=== PATIENT | male | born 1970 | race Caucasian/White ===

== ENCOUNTER 2018-09-29 15:56 | Emergency (ER) | payer BC ==
[2018-09-29 16:05] VITALS: PULSE 62; RESP 18; O2SAT 98
[2018-09-29] MEDS ORDERED: Sodium Chloride 0.9% 1,000 ML IV ONE (16:21)
[2018-09-29] MEDS ORDERED: Belladonna-Phenobarbital PO STA (16:21)
[2018-09-29 16:34] LABS: BASO % 0.5 % (0.0-2.0); EOS % 0.2 % (0.0-4.0); HEMOGLOBIN 15.8 g/dL (12.0-18.0); LYMPH # 0.9 K/uL (1.0-4.3); LYMPH % 8.7 % (20.0-40.0); MEAN CELL VOLUME 90.3 fL (80.0-94.0); MEAN CORPUSCULAR HEMOGLOBIN 30.6 pg (27.0-31.0); MEAN CORPUSCULAR HGB CONC 33.9 g/dL (33.0-37.0); MONO # 0.5 K/uL (0.0-0.8); MONO % 4.7 % (0.0-10.0); NEUT # 8.9 K/uL (1.8-7.0); NEUT % 85.9 % (50.0-75.0); PLATELET COUNT 180 K/uL (130-400); RBC 5.18 Mil/uL (4.40-5.90); RED CELL DISTRIBUTION WIDTH 13.9 % (11.5-14.5); WHITE BLOOD COUNT 10.4 K/uL (4.8-10.8)
[2018-09-29] MEDS ORDERED: Belladonna-Phenobarbital ONE (16:35)
[2018-09-29] MEDS ORDERED: Sodium Chloride 0.9% 1,000 ML ONE (16:36)
--- NOTE | 2018-09-29 16:36 | C.PDOC ---
History Of Present Illness 48 year old male with no medical history presents to the ED for evaluation of dizziness and 6 episodes of vomiting for 2 day. The patient reports yellow vomit with normal bowel movements and stool. His abdomen began to hurt after multiple episodes of vomiting. He notes having no symptoms 1 day ago. The patient denies fever, chills, chest pain, and any other associated symptoms. Time Seen by Provider: 09/29/18 16:14 Chief Complaint (Nursing): Abdominal Pain History Per: Patient History/Exam Limitations: no limitations Onset/Duration Of Symptoms: Days (x1) Current Symptoms Are (Timing): Still Present Location Of Pain/Discomfort: Diffuse Associated Symptoms: Vomiting. denies: Fever, Chills Recent travel outside of the [place]: No Past Medical History Reviewed: Historical Data, Nursing Documentation, Vital Signs Vital Signs: Last Vital Signs Temp 97.3 F L 09/29/18 16:02 Pulse 62 09/29/18 16:02 Resp 18 09/29/18 16:02 BP 123/76 09/29/18 16:02 Pulse Ox 98 09/29/18 16:02 Family History: States: Unknown Family Hx - Social History Hx Alcohol Use: No Hx Substance Use: No Review Of Systems Constitutional: Negative for: Fever, Chills Cardiovascular: Negative for: Chest Pain Gastrointestinal: Positive for: Vomiting, Abdominal Pain (secondary to vomiting. ) Physical Exam - Physical Exam Appears: Non-toxic, No Acute Distress Skin: No Warm (cool. ), Dry Head: Atraumatic, Normacephalic Eye(s): bilateral: Normal Inspection ((-) pale conjuctiva.) Oral Mucosa: Moist Lips: Pale Neck: Normal ROM, Supple Chest: Symmetrical, No Deformity Cardiovascular: Rhythm Regular, No Murmur Respiratory: Normal Breath Sounds, No Rales, No Rhonchi, No Wheezing Gastrointestinal/Abdominal: Normal Exam, Soft, No Tenderness Extremity: Normal ROM (x4) Neurological/Psych: Oriented x3, Normal Speech, Normal Cognition ED Course And Treatment - Laboratory Results Result Diagrams: 09/29/18 16:31 09/29/18 16:31 ECG: Interpreted By Me, Viewed By Me ECG Rhythm: Sinus Rhythm Interpretation Of ECG: No ST elevations or depressions. Rate From EC O2 Sat by Pulse Oximetry: 98 (RA) Pulse Ox Interpretation: Normal - Other Rad CXR X-Ray: Viewed By Me, Read By Radiologist Interpretation: FINDINGS: LUNGS: Clear. PLEURA: No pneumothorax or pleural fluid seen. CARDIOVASCULAR: No aortic atherosclerotic calcification present. Normal. OSSEOUS STRUCTURES: No significant abnormalities. VISUALIZED UPPER ABDOMEN: Normal. OTHER FINDINGS: None. IMPRESSION: No active disease. Obstructive series X-Ray: Viewed By Me, Read By Radiologist Interpretation: FINDINGS: CHEST: Lungs: Clear. Cardiovascular: Normal size heart. No pulmonary vascular congestion. No aortic atherosclerotic kelli cification present. Pleura: No pleural fluid. No pneumothorax. Other findings: None. ABDOMEN AND PELVIS: Bowel: Unremarkable bowel gas pattern. No evidence of mechanical obstruction. Free air: None. Bones: Unremarkable. Other findings: None. IMPRESSION: Unremarkable radiographs of chest and abdomen. No evidence of mechanical bowel obstruction. Medical Decision Making Medical Decision Making: Initial plan: -Blood sent. -CXR - -Pepcid -Zofran Disposition Counseled Patient/Family Regarding: Studies Performed, Diagnosis, Need For Followup, Rx Given - Disposition Disposition: HOME/ ROUTINE Disposition Time: 18:28 Condition: STABLE Prescriptions: Phosphate Enema [Fleet Enema 135 Ml] 135 ml RC DAILY #2 nma Polyethylene Glycol 3350 [Miralax] 17 gm PO DAILY PRN #170 gm PRN Reason: Constipation Wheat Dextrin [Benefiber] 1 each PO DAILY #30 powd.pack Instructions: Constipation, Adult (DC) Forms: [facility] (Fijian), General Discharge Instructions - POA Present On Arrival: None - Clinical Impression Clinical Impression: Constipation - Scribe Statement The provider has reviewed the documentation as recorded by the Scribe (Kayla Nunes) Provider Attestation: All medical record entries made by the Scribe were at my direction and personally dictated by me. I have reviewed the chart and agree that the record accurately reflects my personal performance of the history, physical exam, medical decision making, and the department course for this patient. I have also personally directed, reviewed, and agree with the discharge instructions and disposition.
[2018-09-29 16:46] LABS: ALB/GLOB RATIO 1.7 (1.0-2.1); ALT/SGPT 66 U/L (21-72); AST/SGOT 53 U/L (17-59); BLOOD UREA NITROGEN 21 mg/dL (9-20); CALCIUM 9.3 mg/dl (8.6-10.4); GFR NON-AFRICAN AMERICAN > 60; LIPASE 84 U/L (23-300)
[2018-09-29 17:00] LABS: BANDS 4 % (0-2); LYMPHOCYTE 9 % (20-40); MONOCYTE 3 % (0-10); NEUTROPHIL 84 % (50-75); PLATELET ESTIMATE NORMAL (NORMAL); TOTAL CELLS COUNTED 100
[2018-09-29 17:01] LABS: ANISOCYTOSIS SLIGHT
--- NOTE | 2018-09-29 18:18 | RAD ---
Date of service: 09/29/2018 PROCEDURE: CHEST RADIOGRAPH, 1 VIEW HISTORY: abd pain COMPARISON: None available. FINDINGS: LUNGS: Clear. PLEURA: No pneumothorax or pleural fluid seen. CARDIOVASCULAR: No aortic atherosclerotic calcification present. Normal. OSSEOUS STRUCTURES: No significant abnormalities. VISUALIZED UPPER ABDOMEN: Normal. OTHER FINDINGS: None. IMPRESSION: No active disease.
--- NOTE | 2018-09-29 18:21 | RAD ---
Date of service: 09/29/2018 PROCEDURE: Radiographs of the chest and abdomen (obstructive series) HISTORY: vomiting COMPARISON: No prior. TECHNIQUE: AP radiograph of the chest, with upright and supine radiographs of the abdomen. FINDINGS: CHEST: Lungs: Clear. Cardiovascular: Normal size heart. No pulmonary vascular congestion. No aortic atherosclerotic calcification present Pleura: No pleural fluid. No pneumothorax. Other findings: None. ABDOMEN AND PELVIS: Bowel: Unremarkable bowel gas pattern. No evidence of mechanical obstruction. Free air: None. Bones: Unremarkable. Other findings: None. IMPRESSION: Unremarkable radiographs of chest and abdomen. No evidence of mechanical bowel obstruction.
[2018-09-29 19:16] VITALS: BP 130/77; TEMP 98.1
--- NOTE | 2018-10-01 19:49 | CARD ---
APPROVED REPORT Date of service: 09/29/2018 EKG Measurement Heart [id number] <Conclusion> Sinus bradycardia Otherwise normal ECG
== END 2018-09-29 19:17 | disposition home or self-care (01) ==
LOC: C.ER 15:56
DX: K59.00 Constipation, unspecified (principal)
CPT/HCPCS: 71045; 74022; 80053; 83690; 84484; 85025; 93005; 96361; 96374; 96375; 96376; 99284; J2405; J7030